=== PATIENT | female | born 1955 | race Caucasian/White ===

== ENCOUNTER 2019-03-28 21:29 | Observation (INO) | payer MEDICARE ==
[~2019-03-28] VITALS: Ht 167.6 cm; Wt 84.0 kg
[~2019-03-28 21:29] MED LIST: AMBIEN10 MG PO; LIDOCAINE22 EX; PRILOSEC40 MG PO; VALTREX1 GM PO; ZOFRAN4 MG/TAB PO
[2019-03-28 22:23] LABS: HEMATOCRIT 43.9 % (37.0-47.0); HEMOGLOBIN 15.3 g/dl (12.0-16.0); IMMATURE GRANULOCYTES 1.1 % (0.0-5.0); MEAN CELL VOLUME 86.9 fL CALC (80.0-100.0); MEAN CORPUSCULAR HGB 30.3 pG CALC (26.0-32.0); MEAN CORPUSCULAR HGB CONC 34.9 g/L CALC (32.0-36.0); NEUT# 7.36 thou/uL (2.00-7.15); RED BLOOD COUNT 5.05 mill/uL (4.20-5.60); RED CELL DISTRI WIDTH 12.7 % (11.5-15.5)
[2019-03-28 22:46] LABS: MYOGLOBIN 53 ng/mL (0 - 62)
[2019-03-28 22:50] LABS: INTERNATIONAL NORMALIZED RATIO 0.9 RATIO (0.7-1.3); PROTHROMBIN TIME 9.3 SECONDS (9.0-12.5)
[2019-03-29 00:02] LABS: ALBUMIN 4.9 g/dL (3.2-5.0); ALKALINE PHOSPHATASE 105 u/l (38-126); ANION GAP 22 (6-22 (CALC)); BILIRUBIN, TOTAL 0.5 mg/dL (0.0-1.4); BUN 17 mg/dL (8-23); BUN/CREATININE RATIO 24 (12-20 (CALC)); CARBON DIOXIDE 22 mmol/l (22-30); CHLORIDE 101 mmol/l (95-108); CREATININE 0.7 mg/dL (0.5-1.0); GFR > 60 ML/MIN (>=60 (CALC)); GFR FOR AFR.AMER. > 60 ML/MIN (>=60 (CALC)); POTASSIUM 4.6 mmol/l (3.5-5.1); SGOT/AST 37 u/l (9-36); SODIUM 140 mmol/l (137-146); TOTAL PROTEIN 7.8 g/dL (6.3-8.2)
[2019-03-29 03:39] LABS: URINE BILIRUBIN - DIPSTICK NEGATIVE (NEGATIVE); URINE BLOOD DIPSTICK NEGATIVE (NEGATIVE); URINE COLOR YELLOW; URINE GLUCOSE - DIPSTICK NEGATIVE (NEGATIVE); URINE KETONE NEGATIVE (NEGATIVE); URINE LEUK ESTERASE NEGATIVE (NEGATIVE); URINE NITRITE - DIPSTICK NEGATIVE (Negative); URINE PH 5.5 (4.5-8.0); URINE PROTEIN - DIPSTICK NEGATIVE (NEG-TRACE); URINE SPECIFIC GRAVITY <=1.005; URINE UROBILINOGEN - DIPSTICK 0.2 E.U./dL (0.2)
[2019-03-29 03:40] LABS: HEMATOCRIT 42.7 % (37.0-47.0); HEMOGLOBIN 14.1 g/dl (12.0-16.0); IMMATURE GRANULOCYTES 1.1 % (0.0-5.0); MEAN CELL VOLUME 90.3 fL CALC (80.0-100.0); MEAN CORPUSCULAR HGB 29.8 pG CALC (26.0-32.0); NEUT# 8.72 thou/uL (2.00-7.15); RED BLOOD COUNT 4.73 mill/uL (4.20-5.60); RED CELL DISTRI WIDTH 12.7 % (11.5-15.5)
[2019-03-29 05:35] VITALS: BP 136/74
[2019-03-29 16:32] VITALS: BP 151/78
[2019-03-29 19:10] VITALS: BP 156/88
[2019-03-29 23:12] VITALS: BP 125/67
[2019-03-30 04:05] VITALS: BP 147/89
[2019-03-30 05:06] LABS: HEMATOCRIT 37.7 % (37.0-47.0); HEMOGLOBIN 12.9 g/dl (12.0-16.0); IMMATURE GRANULOCYTES 1.3 % (0.0-5.0); MEAN CELL VOLUME 90.4 fL CALC (80.0-100.0); MEAN CORPUSCULAR HGB 30.9 pG CALC (26.0-32.0); MEAN CORPUSCULAR HGB CONC 34.2 g/L CALC (32.0-36.0); NEUT# 5.3 thou/uL (2.00-7.15); RED BLOOD COUNT 4.17 mill/uL (4.20-5.60); RED CELL DISTRI WIDTH 12.7 % (11.5-15.5)
[2019-03-30 05:20] LABS: ALKALINE PHOSPHATASE 63 u/l (38-126); ANION GAP 13 (6-22 (CALC)); BILIRUBIN, TOTAL 0.5 mg/dL (0.0-1.4); BUN 16 mg/dL (8-23); BUN/CREATININE RATIO 25 (12-20 (CALC)); CARBON DIOXIDE 23 mmol/l (22-30); CHLORIDE 108 mmol/l (95-108); CREATININE 0.6 mg/dL (0.5-1.0); GFR > 60 ML/MIN (>=60 (CALC)); GFR FOR AFR.AMER. > 60 ML/MIN (>=60 (CALC)); LIPASE 64 u/l (23-300); MAGNESIUM 1.9 mg/dL (1.6-2.3); POTASSIUM 4.4 mmol/l (3.5-5.1); SGOT/AST 25 u/l (9-36); SODIUM 140 mmol/l (137-146)
[2019-03-30 05:42] LABS: AMYLASE < 30 u/l (30-110)
[2019-03-30 05:43] LABS: ALBUMIN 3.6 g/dL (3.2-5.0); TOTAL PROTEIN 6.1 g/dL (6.3-8.2)
[2019-03-30 08:30] VITALS: BP 153/66
[2019-03-30 10:45] VITALS: BP 164/95
[2019-03-30 15:26] VITALS: BP 147/74
[2019-03-30 19:02] VITALS: BP 155/88
[2019-03-30 23:55] VITALS: BP 146/73
[2019-03-31 03:50] VITALS: BP 159/85
[2019-03-31 05:07] LABS: HEMATOCRIT 40.3 % (37.0-47.0); HEMOGLOBIN 13.6 g/dl (12.0-16.0); IMMATURE GRANULOCYTES 1.5 % (0.0-5.0); MEAN CELL VOLUME 90.2 fL CALC (80.0-100.0); MEAN CORPUSCULAR HGB 30.4 pG CALC (26.0-32.0); MEAN CORPUSCULAR HGB CONC 33.7 g/L CALC (32.0-36.0); NEUT# 10.77 thou/uL (2.00-7.15); RED BLOOD COUNT 4.47 mill/uL (4.20-5.60); RED CELL DISTRI WIDTH 12.6 % (11.5-15.5)
[2019-03-31 05:41] LABS: ANION GAP 20 (6-22 (CALC)); BUN 16 mg/dL (8-23); BUN/CREATININE RATIO 23 (12-20 (CALC)); CARBON DIOXIDE 21 mmol/l (22-30); CHLORIDE 104 mmol/l (95-108); CREATININE 0.7 mg/dL (0.5-1.0); GFR > 60 ML/MIN (>=60 (CALC)); GFR FOR AFR.AMER. > 60 ML/MIN (>=60 (CALC)); MAGNESIUM 1.8 mg/dL (1.6-2.3); POTASSIUM 4.6 mmol/l (3.5-5.1); SODIUM 140 mmol/l (137-146)
[2019-03-31 07:35] VITALS: BP 156/82
[2019-03-31 11:00] VITALS: BP 173/96
[2019-03-31] MEDS ORDERED: IBUPROFEN600 MG PO (11:57)
[2019-03-31] MEDS ORDERED: MEDDOSEPAK PO (11:57)
[2019-03-31] MEDS ORDERED: LEVAQUIN750 M1 PO (11:57)
[2019-03-31] MEDS ORDERED: LOSARTAN POT50 MG PO (12:02)
[2019-03-31] MEDS ORDERED: BIOTUSSIN PO (12:02)
[2019-03-31] MEDS ORDERED: PANTOPRAZOLE SO40 M1 PO (12:02)
[2019-03-31] MEDS ORDERED: IPRATROPIU0.5 MG/3 M IN (12:02)
[2019-03-31] MEDS ORDERED: GLUCOPHAGE500 MG PO (12:02)
[2019-03-31] MEDS ORDERED: ATORVASTATIN CA10 MG PO (12:02)
[2019-03-31] MEDS ORDERED: METOPROLOL SUC100 MG PO (12:02)
[2019-03-31] MEDS ORDERED: ROBITUSSIN AC10 ML PO (12:06)
== END 2019-03-31 12:50 | disposition home or self-care (01) ==
LOC: ED 21:29 → ED-I 03-29 03:50 → ED 03-29 04:08 → MS2 03-29 04:09
PROVIDERS: Emergency Medicine; Internal Medicine Nephrology; Nurse Practitioner Family; ADMIT Internal Medicine; ATTEND Internal Medicine
DX: J20.9 Acute bronchitis, unspecified (principal); J32.9 Chronic sinusitis, unspecified; I10 Essential (primary) hypertension; E11.65 Type 2 diabetes mellitus with hyperglycemia; E78.5 Hyperlipidemia, unspecified; R80.9 Proteinuria, unspecified; M94.0 Chondrocostal junction syndrome [Tietze]; E87.3 Alkalosis; R07.9 Chest pain, unspecified; R06.02 Shortness of breath; R05 Cough
CPT/HCPCS: Q9967

== ENCOUNTER 2022-03-08 18:59 | Emergency (ER) | payer MEDICARE ==
[~2022-03-08] VITALS: Ht 167.6 cm; Wt 86.0 kg
[~2022-03-08 18:59] MED LIST changes: +ATORVASTATIN CA10 MG PO; +BIOTUSSIN PO; +GLUCOPHAGE500 MG PO; +IBUPROFEN600 MG PO; +IPRATROPIU0.5 MG/3 M IN; +LEVAQUIN750 M1 PO; +LOSARTAN POT50 MG PO; +MEDDOSEPAK PO; +METOPROLOL SUC100 MG PO; +PANTOPRAZOLE SO40 M1 PO; +ROBITUSSIN AC10 ML PO
[2022-03-08 19:05] VITALS: BP 166/88
[2022-03-08 19:15] VITALS: BP 164/77
[2022-03-08 19:30] VITALS: BP 169/81
[2022-03-08 19:45] VITALS: BP 172/74
[2022-03-08 20:01] VITALS: BP 168/84
[2022-03-08 20:16] VITALS: BP 163/100
[2022-03-08] MEDS ORDERED: AMOX/K CLAV875 M1 PO (20:16)
== END 2022-03-08 20:41 | disposition home or self-care (01) ==
LOC: ED 18:59
PROC: 0HQLXZZ Repair Left Lower Leg Skin, External Approach (ICD-10-PCS; principal; 2022-03-08)
DX: S81.812A Laceration without foreign body, left lower leg, initial encounter (principal); I10 Essential (primary) hypertension; E11.9 Type 2 diabetes mellitus without complications; W55.42XA Struck by pig, initial encounter; Y92.007 Garden or yard of unspecified non-institutional (private) residence as the place of occurrence of the external cause; Z95.5 Presence of coronary angioplasty implant and graft